=== PATIENT | female | born 1985 | race Caucasian/White ===

== ENCOUNTER 2017-01-21 05:40 | Inpatient (IN) | payer BC ==
[2017-01-21] VITALS (32 sets, daily range): BP systolic 100–142; BP diastolic 65–83; PULSE 28–98; RESP 17–18; TEMP 97.9–98.5
[~2017-01-21] VITALS: Ht 157.5 cm; Wt 71.2 kg
[~2017-01-21 05:40] MED LIST: OXYC1SOL5 PO; PREN1TAB30; ZYRT10TA12 PO
[2017-01-21] MEDS ORDERED: ZANT150T2 PO (06:40)
[2017-01-21] MEDS ORDERED: LACTATED RINGER'S 1000 ML INJ 1,000 ML IV PRN (06:42)
[2017-01-21] MEDS ORDERED: LACTATED RINGER'S 1000 ML INJ 1,000 ML IV SCH (06:42)
--- NOTE | 2017-01-21 06:42 | HHI.HP ---
HPI Chief Complaint Water broken and rex Date Seen: Jan 21, 2017 Time Seen: 06:30 Travel History International Travel<30 Days: No Contact w/Intl Traveler<30Days: No Known Affected Area: No History of Present Illness HPI Patient is 31-year-old white female previous at 39 weeks and desires . She is grossly ruptured membranes and is rex vigorously, patient sees Dr. Lira for care. heart rate tracing is reactive and contractions are seen every 2-3 minutes Weeks Gestation: 39 Para: 1 : 2 History Obstetric History Obstetric History 1 Past Surgical History Narrative Surgical 1 Social History Alcohol Use: No Tobacco Use: No Substance Abuse: No Allergies-Medications (Allergen,Severity, Reaction): Coded Allergies: No Known Allergies (Verified , 02/27/06) Home Meds Active Scripts Oxycodone W/ Acetaminophen (Oxycodone/Acetaminophen 5-325 mg/5Ml) 1 Tab Tab, 2 TAB PO Q4H Y for PAIN SCALE 6 TO 10, #30 TAB Prov:Enrrique Mak MD 10/06/14 Reported Medications Cetirizine Hcl (Zyrtec) 10 Mg Tab, 10 MG PO DAILY, TAB 10/02/14 Vit W/ Ferrous Fumara ( Vitamin 27-0.8 mg) 1 Tab Tab 10/02/14 Review of Systems General / Constitutional: No: Fever, Weight Gain, Chills, Other Eyes: No: Diploplia, Blurred Vision, Visual changes, Pain, Photophobia HENT: No: Headaches, Vertigo, Lightheadedness Cardiovascular: No: Irregular Rhythm, Chest Pain or Discomfort, Palpitations, Tachycardia, Syncope, Varicosities, Edema, Cyanosis Respiratory: No: Cough, Short of Breath, Other Gastrointestinal: Abdominal Pain, No: Nausea, Vomiting, Diarrhea Genitourinary: No: Decreased Urinary Output, Oliguria Musculoskeletal: No: Limited ROM, Weakness, Cramping, Edema, Pain Skin: No Rash, No Itching, No Dryness, No Lumps, No Change in Pigmentation, No Change in Nails, No Alopecia, No Lesions Neurologic: No: Weakness, Dizziness, Syncope, Focal Abnormalities, Coordination Problem, Headache, Slurred Speech, Seizures Psychiatric: No: Depression, Suicidal Ideations, Homicidal Ideation Endocrine: No: Heat Intolerance, Cold Intolerance, Polydipsia, Polyuria, Other Physical Exam Narrative GENERAL: Well-nourished, well-developed patient. SKIN: Warm and dry. HEAD: Normocephalic and atraumatic. EYES: No scleral icterus. No injection or drainage. ENT: No nasal drainage noted. Mucous membranes pink. Airway patent. NECK: Supple, trachea midline. No JVD. CARDIOVASCULAR: Regular rate and rhythm without murmurs, gallops, or rubs. RESPIRATORY: Breath sounds equal bilaterally. No accessory muscle use. BREASTS: Bilateral exam showed no masses , no retractions, no nipple discharge. ABDOMEN/GI: Abdomen soft, non-tender, bowel sounds present, no rebound, no guarding Gravid to [-39] weeks size Fundal Height: [39-] GENITOURINARY: External Genitalia: intact and normal in appearance BUS glands: [-] Cervix: [-] Dilatation: [3-] Effacement: [100-] Station: [-2] Presentation: [-] Membranes: ruptured] Uterine Contractions: [Every 2-3 minutes-] FHT's: Category: [1-] Baseline: [-133] Reactive: [yes-] Variability: [-mod] Decels: [none-] EXTREMITIES: No cyanosis or edema. BACK: Nontender without obvious deformity. No CVA tenderness. NEUROLOGICAL: Awake and alert. Motor and sensory grossly within normal limits. Five out of 5 muscle strength in all muscle groups. Normal speech. Caprini VTE Risk Assessment Caprini VTE Risk Assessment: No/Low Risk (score <= 1) Caprini Risk Assessment Model Point Value = 1 Point Value = 2 Point Value = 3 Point Value = 5 Age 41-60 Minor surgery BMI > 25 kg/m2 Swollen legs Varicose veins or History of unexplained or recurrent spontaneous Oral contraceptives or hormone replacement Sepsis (< 1 month) Serious lung disease, including pneumonia (< 1 month) Abnormal pulmonary function Acute myocardial infarction Congestive heart failure (< 1 month) History of inflammatory bowel disease Medical patient at bed rest Age 61-74 Arthroscopic surgery Major open surgery (> 45 min) Laparoscopic surgery (> 45 min) Malignancy Confined to bed (> 72 hours) Immobilizing plaster cast Central venous access Age >= 75 History of VTE Family history of VTE Factor V Leiden Prothrombin [id number] Lupus anticoagulant Anticardiolipin antibodies Elevated serum homocysteine Heparin-induced thrombocytopenia Other congenital or acquired thrombophilia Stroke (< 1 month) Elective arthroplasty Hip, pelvis, or leg fracture Acute spinal cord injury (< 1 month) Prophylaxis Regimen Total Risk Factor Score Risk Level Prophylaxis Regimen 0-1 Low Early ambulation 2 Moderate Order ONE of the following: *Sequential Compression Device (SCD) *Heparin 5000 units SQ BID 3-4 Higher Order ONE of the following medications: *Heparin 5000 units SQ TID *Enoxaparin/Lovenox 40 mg SQ daily (WT < 150 kg, CrCl > 30 mL/min) *Enoxaparin/Lovenox 30 mg SQ daily (WT < 150 kg, CrCl > 10-29 mL/min) *Enoxaparin/Lovenox 30 mg SQ BID (WT < 150 kg, CrCl > 30 mL/min) AND/OR *Sequential Compression Device (SCD) 5 or more Highest Order ONE of the following medications: *Heparin 5000 units SQ TID (Preferred with Epidurals) *Enoxaparin/Lovenox 40 mg SQ daily (WT < 150 kg, CrCl > 30 mL/min) *Enoxaparin/Lovenox 30 mg SQ daily (WT < 150 kg, CrCl > 10-29 mL/min) *Enoxaparin/Lovenox 30 mg SQ BID (WT < 150 kg, CrCl > 30 mL/min) AND *Sequential Compression Device (SCD) Data Data Orders Orders Ob (2e) Additional Admit Info (01/21/17 06:09) Assessment/Plan Assessment and Plan Patient is 31-year-old white female previous at 39 weeks with gross ruptured membranes and early labor. Patient desires delivery understands risk and benefits of that process that the uterine rupture rate is less than 1% but does exist and she understands risk and benefits of proceeding , heart rate tracing is reactive and she is rex irregularly. Cervix is 3 cm 100% effaced -2 Impressions SROM and early labor and a 39 week IUP with previous desires Plan is admission to hospital manage labor anticipate delivery Ari Aguilera II, MD Jan 21, 2017 06:42
[2017-01-21] MEDS ORDERED: ONDANSETRON HCL 4 MG/2 ML VIAL IV PRN (06:45)
[2017-01-21] MEDS ORDERED: CITRIC ACID-SODIUM CITRATE LIQ 30 ML UDC PO SCH (06:45)
[2017-01-21] MEDS ORDERED: PENICILLIN G POTASSIUM INJ 5,000,000 UNITS in SODIUM CHLORIDE 0.9% INJ 100 ML IV ONE (06:45)
[2017-01-21] MEDS ORDERED: LIDOCAINE HCL 1% 50 ML VIAL INFIL PRN (06:45)
[2017-01-21] MEDS ORDERED: LIDOCAINE HCL 1% 50 ML VIAL I-DERMAL PRN (06:45)
[2017-01-21] MEDS ORDERED: MINERAL OIL 10 ML VIAL TOPICAL PRN (06:45)
[2017-01-21] MEDS ORDERED: OXYTOCIN 30 UNITS-500ML PREMIX 500 ML IV ONE (06:45)
[2017-01-21] MEDS ORDERED: SODIUM CHLORID 0.9% 500 ML INJ 500 ML IV PRN (06:45)
[2017-01-21 06:52] LABS: AUTOMATED NEUTROPHIL # 13.8 TH/MM3 (1.8-7.7); BASOPHIL # 0.1 TH/MM3 (0-0.2); BASOPHIL % 0.5 % (0.0-2.0); EOSINOPHIL % 0.2 % (0.0-4.0); HEMATOCRIT 35.4 % (35.0-46.0); HEMO FLAGS DIFF FINAL; LYMPH % 9.6 % (9.0-44.0); LYMPHOCYTE # 1.6 TH/MM3 (1.0-4.8); MEAN CORPUSCULAR HEMOGLOBIN 30.7 PG (27.0-34.0); MEAN CORPUSCULAR HGB CONC 33.4 % (32.0-36.0); NEUT % 84.7 % (16.0-70.0); PLATELET COUNT 249 TH/MM3 (150-450); RED BLOOD COUNT 3.85 MIL/MM3 (4.00-5.30); RED CELL DISTRIBUTION WIDTH 13.3 % (11.6-17.2); WHITE BLOOD COUNT 16.3 TH/MM3 (4.0-11.0)
[2017-01-21] MEDS ORDERED: SODIUM CHLOR 0.9% 1000 ML INJ 1,000 ML IV PRN (07:02)
[2017-01-21] MEDS ORDERED: fentaNYL 2MCG-BUPIV 0.125% INJ 100 ML ONE (07:04)
[2017-01-21] MEDS ORDERED: ePHEDrine/NS 25 MG/5 ML SYR ONE (07:05)
[2017-01-21 07:14] LABS: BLOOD, URINE MOD (NEG); COMMENT (UR) CULT NOT INDICATED; CULTURE IF INDICATED CULT NOT INDICATED; GLUCOSE,URINE NEG (NEG); KETONE, URINE TRACE mg/dL (NEG); MUCUS URINE FEW /lpf (OCC); NITRITE,URINE NEG (NEG); SQUAMOUS EPITHELIAL CELL URINE 3 /hpf (0-5); URINE COLOR YELLOW (YELLW/STRAW)
--- NOTE | 2017-01-21 08:39 | PD.OB.DELI ---
Weeks gestation: 39 Gest age assessed date: Jan 21, 2017 Gest age assessed time: 05:00 Pt started active labor?: Yes Medical induction of labor?: No Artificial rupture of membrane: No Anesthesia: Lidocaine local to perineum Episiotomy: None Vaginal Delivery: Normal Presentation: Occiput anterior Nuchal Cord: None Delayed cord clamping (45 sec): Yes : Male, Single Delivery date: Jan 21, 2017 Delivery time: 07:51 One Minute : 7 Five Minute : 9 Placenta: Spontaneous delivery, Intact, 3 vessel cord Laceration: Vaginal laceration, Perineal laceration, 2 deg Repair: Chromic interrupted, Chromic running Estimated blood loss: 300 Olga Holman MD Jan 21, 2017 08:38
[2017-01-21] MEDS ORDERED: oxyCODONE/ACETAMINOPHEN 5 MG/325 MG TAB PO PRN (08:45)
[2017-01-21] MEDS ORDERED: SODIUM CHLORIDE 0.9% FLUSH 10 ML FLUSH IV FLUSH PRN (08:45)
[2017-01-21] MEDS ORDERED: OXYTOCIN 30 UNITS-500ML PREMIX 500 ML IV SCH (08:45)
[2017-01-21] MEDS ORDERED: WITCH HAZEL 50%/GLYCERIN 12.5% 40 PAD JAR TOPICAL PRN (09:00)
[2017-01-21] MEDS ORDERED: SODIUM CHLORIDE 0.9% FLUSH 10 ML FLUSH IV FLUSH SCH (09:00)
[2017-01-21] MEDS ORDERED: ONDANSETRON ODT 4 MG TAB PO PRN (09:00)
[2017-01-21] MEDS ORDERED: ALUMINUM/MAGNESIUM/SIMETH 30 ML CUP PO PRN (09:00)
[2017-01-21] MEDS ORDERED: BENZOCAINE 20% TOPICAL SPRAY 60 ML CAN TOPICAL PRN (09:00)
[2017-01-21] MEDS ORDERED: DOCUSATE SODIUM 50 MG/SENNA 8.6 MG TAB PO PRN (09:00)
[2017-01-21] MEDS ORDERED: PENICILLIN G POTASSIUM INJ 2,500,000 UNITS in SODIUM CHLORIDE 0.9% INJ 100 ML IV SCH (10:45)
[2017-01-21] MEDS: ACETAMINOPHEN 325 MG TAB PO PRN ×3 (12:15→22:50)
[2017-01-21] MEDS ORDERED: MEASLES, MUMPS, RUBELLA VACCINE 0.5 ML VIAL SQ ONE (16:00)
[2017-01-21] MEDS ORDERED: DIPHTH/TETANUS/ACEL PERTUSSIS (BOOSTER) 0.5 ML VIAL/PFS IM ONE (16:00)
[2017-01-21] MEDS: IBUPROFEN 600 MG TAB PO PRN ×2 (16:19→22:50)
[2017-01-21] MEDS ORDERED: ZOLPIDEM TARTRATE 5 MG TAB PO PRN (21:00)
[2017-01-22] MEDS: IBUPROFEN 600 MG TAB PO PRN ×3 (04:55→19:38)
[2017-01-22] MEDS: oxyCODONE/ACETAMINOPHEN 5 MG/325 MG TAB PO PRN ×4 (04:55→19:38)
[2017-01-22 07:45] VITALS: BP 119/57; PULSE 60; RESP 16; TEMP 97.8
--- NOTE | 2017-01-22 09:38 | HHI.OB ---
Subjective Post Day: 1 Remarks doing well, happy with feels better than previous Objective Vitals/I&O Vital Signs Date Time Temp Pulse Resp B/P (MAP) Pulse Ox O2 Delivery O2 Flow Rate FiO2 01/22/17 07:45 97.8 60 16 119/57 (77) 01/21/17 22:30 98.2 62 18 01/21/17 22:30 28 112/68 (83) 01/21/17 16:00 98.1 65 18 107/67 (80) 01/21/17 11:00 98.2 01/21/17 11:00 60 18 100/65 (77) 01/21/17 10:11 98.0 18 01/21/17 10:00 67 18 125/74 (91) 01/21/17 09:46 75 141/69 (93) 01/21/17 09:45 18 Objective Remarks GENERAL: Well-nourished, well-developed patient. . ABDOMEN/GI: Abdomen soft, non-tender. Fundus: Firm, non-tender at umbilicus. GENITOURINARY: Light to moderate bleeding. EXTREMITIES: No cyanosis or edema, non-tender, without signs of DVT. Medications and IVs Current Medications Medications (Trade) Dose Ordered Sig/Darrell Route Start Time Stop Time Status Last Admin Lactated Ringer's 1,000 ml @ 125 mls/hr Q8H IV 01/21/17 06:42 01/21/17 06:46 Lactated Ringer's 1,000 ml @ 3,000 mls/hr Q20M PRN IV 01/21/17 06:42 Sodium Chloride 500 ml @ 1,000 mls/hr ONCE PRN IV 01/21/17 06:45 01/24/17 06:44 Sodium Chloride 1,000 ml @ 100 mls/hr Q10H PRN IV 01/21/17 07:02 (Xylocaine 1% Inj (50 ml)) 0.1 ml UNSCH X1 PRN I-DERMAL 01/21/17 06:45 01/24/17 06:44 (Bicitra Liq) 30 ml GAS ENGINE OPERATOR GENERATORS PO 01/21/17 06:45 01/25/17 06:44 (Zofran Inj) 4 mg Q6H PRN IV 01/21/17 06:45 (Xylocaine 1% Inj (50 ml)) 10 ml UNSCH X1 PRN INFIL 01/21/17 06:45 01/23/17 06:44 (Muri-Lube Oil) 10 ml UNSCH PRN TOPICAL 01/21/17 06:45 (NS Flush) 2 ml BID IV FLUSH 01/21/17 09:00 (NS Flush) 2 ml UNSCH PRN IV FLUSH 01/21/17 08:45 (Tylenol) 650 mg Q4H PRN PO 01/21/17 08:45 01/21/17 22:50 (Motrin) 600 mg Q6H PRN PO 01/21/17 08:45 01/22/17 04:55 (Percocet 5-325 Mg) 1 tab Q4H PRN PO 01/21/17 08:45 01/22/17 04:55 (Percocet 5-325 Mg) 2 tab Q4H PRN PO 01/21/17 08:45 (Americaine 20% Top Spr) 1 spray Q4H PRN TOPICAL 01/21/17 09:00 (Tucks Pads) 1 applic QID PRN TOPICAL 01/21/17 09:00 (Vale-Colace) 2 tab Q12HR PRN PO 01/21/17 09:00 (Ambien) 5 mg HS PRN PO 01/21/17 21:00 (Mag-Al Plus Susp Liq) 15 ml Q8H PRN PO 01/21/17 09:00 (Zofran Odt) 4 mg Q6H PRN PO 01/21/17 09:00 Assessment/Plan Assessment and Plan Patient is 31-year-old white female previous at 39 weeks with gross ruptured membranes and early labor. Patient desires delivery understands risk and benefits of that process that the uterine rupture rate is less than 1% but does exist and she understands risk and benefits of proceeding , heart rate tracing is reactive and she is rex irregularly. Cervix is 3 cm 100% effaced -2 Impressions SROM and early labor and a 39 week IUP with previous desires Plan is admission to hospital manage labor anticipate delivery Discharge Planning GBS positive DC home 48 hours pp Enrrique Mak MD Jan 22, 2017 09:38
[2017-01-22 19:45] VITALS: BP 124/82; PULSE 58; RESP 20; TEMP 98.2
[2017-01-23] MEDS: oxyCODONE/ACETAMINOPHEN 5 MG/325 MG TAB PO PRN ×2 (01:46→07:52)
[2017-01-23] MEDS: IBUPROFEN 600 MG TAB PO PRN ×2 (01:46→07:52)
[2017-01-23 08:36] VITALS: BP 107/69; PULSE 61; RESP 18; TEMP 98.1
--- NOTE | 2017-01-23 10:26 | HHI.OB ---
Subjective Post Day: 2 Remarks day 2 ready for DC home Objective Vitals/I&O Vital Signs Date Time Temp Pulse Resp B/P (MAP) Pulse Ox O2 Delivery O2 Flow Rate FiO2 01/23/17 08:36 98.1 61 18 107/69 (82) 01/22/17 19:45 98.2 58 20 01/22/17 19:45 124/82 (96) Objective Remarks GENERAL: Well-nourished, well-developed patient. . ABDOMEN/GI: Abdomen soft, non-tender. Fundus: Firm, non-tender at umbilicus. GENITOURINARY: Light to moderate bleeding. EXTREMITIES: No cyanosis or edema, non-tender, without signs of DVT. Medications and IVs Current Medications Medications (Trade) Dose Ordered Sig/Darrell Route Start Time Stop Time Status Last Admin Lactated Ringer's 1,000 ml @ 125 mls/hr Q8H IV 01/21/17 06:42 01/21/17 06:46 Lactated Ringer's 1,000 ml @ 3,000 mls/hr Q20M PRN IV 01/21/17 06:42 Sodium Chloride 500 ml @ 1,000 mls/hr ONCE PRN IV 01/21/17 06:45 01/24/17 06:44 Sodium Chloride 1,000 ml @ 100 mls/hr Q10H PRN IV 01/21/17 07:02 (Xylocaine 1% Inj (50 ml)) 0.1 ml UNSCH X1 PRN I-DERMAL 01/21/17 06:45 01/24/17 06:44 (Bicitra Liq) 30 ml INFRASTRUCTURE TECHNICIAN PO 01/21/17 06:45 01/25/17 06:44 (Zofran Inj) 4 mg Q6H PRN IV 01/21/17 06:45 (Muri-Lube Oil) 10 ml UNSCH PRN TOPICAL 01/21/17 06:45 (NS Flush) 2 ml BID IV FLUSH 01/21/17 09:00 (NS Flush) 2 ml UNSCH PRN IV FLUSH 01/21/17 08:45 (Tylenol) 650 mg Q4H PRN PO 01/21/17 08:45 01/21/17 22:50 (Motrin) 600 mg Q6H PRN PO 01/21/17 08:45 01/23/17 07:52 (Percocet 5-325 Mg) 1 tab Q4H PRN PO 01/21/17 08:45 01/23/17 07:52 (Percocet 5-325 Mg) 2 tab Q4H PRN PO 01/21/17 08:45 (Americaine 20% Top Spr) 1 spray Q4H PRN TOPICAL 01/21/17 09:00 01/22/17 14:50 (Tucks Pads) 1 applic QID PRN TOPICAL 01/21/17 09:00 01/22/17 14:50 (Vale-Colace) 2 tab Q12HR PRN PO 01/21/17 09:00 01/22/17 19:38 (Ambien) 5 mg HS PRN PO 01/21/17 21:00 (Mag-Al Plus Susp Liq) 15 ml Q8H PRN PO 01/21/17 09:00 (Zofran Odt) 4 mg Q6H PRN PO 01/21/17 09:00 Assessment/Plan Assessment and Plan Patient is 31-year-old white female previous at 39 weeks with gross ruptured membranes and early labor. Patient desires delivery understands risk and benefits of that process that the uterine rupture rate is less than 1% but does exist and she understands risk and benefits of proceeding , heart rate tracing is reactive and she is rex irregularly. Cervix is 3 cm 100% effaced -2 Impressions SROM and early labor and a 39 week IUP with previous desires Plan is admission to hospital manage labor anticipate delivery Discharge Planning GBS positive DC home today Enrrique Mak MD Jan 23, 2017 10:25
--- NOTE | 2017-01-23 10:27 | HHI.DCPOC ---
Discharge Care Plan Diagnosis: (1) (vaginal after ) Report Symptoms to Your Doctor -Temperature above 100.5 degrees -Redness, of incision or excessive or foul smelling drainage -Unusual pain or calf pain -Increased vaginal bleeding -Painful or difficulty urinating -Feelings of extreme sadness or anxiety after 2 weeks Goals to Promote Your Health * To prevent worsening of your condition and complications * To maintain your health at the optimal level Directions to Meet Your Goals Take your medications as prescribed Follow your dietary instruction Follow activity as directed Ensure plenty of rest for recovery Drink fluids for hydration Keep your appointments as scheduled Take your immunizations and boosters as scheduled If your symptoms worsen call your PCP, if no PCP go to Urgent Care Center or Emergency Room Smoking is Dangerous to Your Health. Avoid second hand smoke Call the 24-hour crisis hotline for domestic abuse at Enrrique Mak MD Jan 23, 2017 10:27
[2017-01-23] MEDS ORDERED: OXYC1TAB63 PO (10:28)
--- NOTE | 2017-01-23 10:29 | HHI.DS ---
Admission Date Jan 21, 2017 at 06:09 Discharge Date: Jan 23, 2017 Admitting Diagnosis Diagnosis: Delivery Date: Jan 21, 2017 Vaginal Delivery: Infant: Male, Single Brief History Patient is 31-year-old white female previous at 39 weeks and desires . She is grossly ruptured membranes and is rex vigorously, patient sees Dr. Lira for care. heart rate tracing is reactive and contractions are seen every 2-3 minutes Hospital Course did well pp Pt Condition on Discharge: Good Discharge Disposition: Discharge Home Discharge Instructions Diet Instructions: As Tolerated, No Restrictions Activities You Can Perform: Pelvic Rest Follow up Referrals: H[employer] PRINTER OPERATOR - 2 Weeks @ [facility] with Enrrique Mak MD New Medications: Oxycodone-Acetaminophen (Oxycodone-Acetaminophen) 5-325 mg Tab 1 TAB PO Q4H PRN for PAIN SCALE 3 TO 5 for 7 Days, #20 TAB 0 Refills Continued Medications: Cetirizine Hcl (Zyrtec) 10 Mg Tab 10 MG PO DAILY, TAB Vit W/ Ferrous Fumara ( Vitamin 27-0.8 mg) 1 Tab Tab Ranitidine (Zantac) 150 Mg Tab 150 MG PO DAILY for Reduce Stomach Acid, #30 TAB 0 Refills Enrrique Mak MD Jan 23, 2017 10:29
== END 2017-01-23 12:29 | disposition home or self-care (01) | DRG 775 ==
LOC: HOBED 05:40 → H2EB 06:09 → H1EA 10:30
PROVIDERS: ADMIT Obstetrics & Gynecology; ATTEND Obstetrics & Gynecology
PROC: 10E0XZZ Delivery of Products of Conception, External Approach (ICD-10-PCS; principal; 2017-01-21)
PROC: 0KQM0ZZ Repair Perineum Muscle, Open Approach (ICD-10-PCS; 2017-01-21)
DX: O99.824 Streptococcus B carrier state complicating childbirth (principal); Z37.0 Single live birth; O70.1 Second degree perineal laceration during delivery; O34.219 Maternal care for unspecified type scar from previous cesarean delivery; Z3A.39 39 weeks gestation of pregnancy
CPT/HCPCS: 59025; 81001; 84112; 85025; 86850; 86900; 86901; 90715; J2540; J2590; J3010; J7120